=== PATIENT | male | born 1955 | race Hispanic/Latino ===

== ENCOUNTER 2022-03-11 11:05 | Emergency (ER) | payer BC, MEDICARE ==
[2022-03-11 11:18] VITALS: BP 149/84
[2022-03-11 11:38] LABS: Bilirubin,Urine NEG (Negative); Blood,Urine SM (Negative); Color,Urine Yellow (Yellow)
[2022-03-11 12:31] LABS: Bacteria,Urine 4+ /HPF (Negative)
[2022-03-11 12:43] LABS: WBC,Urine > 182.0 /HPF (0.0-6.0)
[2022-03-11] MEDS ORDERED: PHENAZOPYRIDINE 200 MG TAB PO ONE (13:09)
[2022-03-11] MEDS ORDERED: LIDOCAINE-MPF (1%) 10 MG/1 ML VIAL 5 ML INFILTRATI ONE (13:09)
--- NOTE | 2022-03-11 13:09 | Emergency Department Report ---
ED Dysuria HPI - HPI Chief Complaint: Urogenital-Male Stated Complaint: POSSIBLE UTI Time Seen by Provider: 03/11/22 11:34 Location of Discomfort: Urethra (dysuria) Severity: Mild Symptoms: Dysuria: Yes, Frequency: No, Suprapubic Pain: No, Flank Pain: No, Fever: No, Hematuria: No, Abdominal Pain: No, Previous UTI's: Yes Other History: Patient is a pleasant 67-year-old male that comes to the emergency room at the direction of his primary care to get antibiotics. He has a history of UTIs and completed Bactrim less than 1 month ago. 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 He has no abdominal pain. There is no nausea vomiting. There is no back pain. No fever or chills. No hypotension or tachycardia. Patient has no penile discharge. He complains just of dysuria. He is under the care and guidance of his primary care for his BPH at home. And he is in route to his home at this time. Patient will be prescription from the Bactrim and Pyridium that he had been on. ED Review of Systems ROS: Stated complaint: POSSIBLE UTI Other details as noted in HPI Comment: All other systems reviewed and negative ED Past Medical Hx - Past Medical History Previous Medical History?: Yes Additional medical history: neuropathy- UTI - Surgical History Past Surgical History?: No - Family History Family history: no significant - Social History Smoking Status: Never Smoker Substance Use Type: None - Medications Home Medications: Home Medications Medication Instructions Recorded Confirmed Last Taken Type DOXYCYCLINE Hyclate [Vibramycin 100 mg PO Q12HR #20 capsule 03/11/22 Unknown Rx CAP] Dysuria Exam - Exam General: Vital signs noted. No distress. Alert and acting appropriately. Exam: Yes Moist Mucous Membranes, No CVA Tenderness, No Abdominal Tenderness, No Rigidity or Guarding Exam: Patient alert and oriented x4. Vital signs are normal. He is taking p.o. S1-S2. No tachycardia or hypotension. Abdomen soft nontender. Patient obese. Patient has no CVA tenderness. He is taking p.o. Labs: Lab Results 03/11/22 Range/Units Unknown Urine Color Yellow (Yellow) Urine Turbidity Cloudy (Clear) Urine pH 6.0 (5.0-7.0) Ur Specific Simpson 1.013 (1.003-1.030) Urine Protein 30 mg/dl (Negative) mg/dL Urine Glucose (UA) Neg (Negative) mg/dL Urine Ketones Neg (Negative) mg/dL Urine Blood Sm (Negative) Urine Nitrite Neg (Negative) Urine Bilirubin Neg (Negative) Urine Urobilinogen 2.0 (<2.0) mg/dL Ur Leukocyte Esterase Lg (Negative) Urine WBC (Auto) > 182.0 H (0.0-6.0) /HPF Urine RBC (Auto) 49.0 (0.0-6.0) /HPF U Epithel Cells (Auto) 1.0 (0-13.0) /HPF Urine Bacteria (Auto) 4+ (Negative) /HPF Urine WBC Clumps 3+ /HPF Urine Yeast (Budding) 3+ /HPF ED Course Vital Signs 03/11/22 11:16 Temperature 98.7 F Pulse Rate 91 H Respiratory 18 Rate Blood Pressure 149/84 O2 Sat by Pulse 96 Oximetry ED Medical Decision Making - Medical Decision Making Vital Signs 03/11/22 11:16 Temperature 98.7 F Pulse Rate 91 H Respiratory 18 Rate Blood Pressure 149/84 O2 Sat by Pulse 96 Oximetry Lab Results 03/11/22 Range/Units Unknown Urine Color Yellow (Yellow) Urine Turbidity Cloudy (Clear) Urine pH 6.0 (5.0-7.0) Ur Specific Simpson 1.013 (1.003-1.030) Urine Protein 30 mg/dl (Negative) mg/dL Urine Glucose (UA) Neg (Negative) mg/dL Urine Ketones Neg (Negative) mg/dL Urine Blood Sm (Negative) Urine Nitrite Neg (Negative) Urine Bilirubin Neg (Negative) Urine Urobilinogen 2.0 (<2.0) mg/dL Ur Leukocyte Esterase Lg (Negative) Urine WBC (Auto) > 182.0 H (0.0-6.0) /HPF Urine RBC (Auto) 49.0 (0.0-6.0) /HPF U Epithel Cells (Auto) 1.0 (0-13.0) /HPF Urine Bacteria (Auto) 4+ (Negative) /HPF Urine WBC Clumps 3+ /HPF Urine Yeast (Budding) 3+ /HPF UA noted. Patient noted to have 49 RBCs, small blood. His pain is not consistent with that of kidney stones. He has no history of kidney stones. 1 GM IM ROCEPHIN AND PYRIDIUM PO while in the ER. I explained to the patient that ideally we would do blood work to make sure that he does not have a leukocytosis and overwhelming infection. However, he does not want blood work because he is on his way home. He is under the care of direction of a PCP. He showed me Bactrim prescriptions to validate that. He has no hypotension or tachycardia. He is ambulatory to the ER. He has no fever or chills. I have started the patient on doxycycline. He has a urine culture pending. Patient has left the number for us to call should we need to change the antibiotic. I also told him to have his PCP called to get the results of the culture so that they can make sure that he is on the correct antibiotic. I have also advised him that if he has any worsening symptoms in his right home that he needs to stop at any emergency room and allow them to do blood work. He verbalizes understanding. On discharge exam patient is ambulatory, not ill nontoxic. He is taking p.o. Patient being discharged home with discharge plan of care including diet, activity, medications and follow-up. He will follow-up with his PCP as soon as he gets home. - Differential Diagnosis Rule out UTI, PYlo, kidney stone Critical care attestation.: If time is entered above; I have spent that time in minutes in the direct care of this critically ill patient, excluding procedure time. ED Disposition Clinical Impression: UTI (urinary tract infection) Qualifiers: Urinary tract infection type: site unspecified Hematuria presence: with hematuria Qualified Code(s): N39.0 - Urinary tract infection, site not specified; R31.9 - Hematuria, unspecified Disposition: 01 HOME / SELF CARE / HOMELESS Is pt being admited?: No Does the pt Need Aspirin: No Condition: Stable Instructions: Urinary Tract Infection, Adult Additional Instructions: MEDICATION ORDERED TODAY UNTIL GONE FOLLOW UP WITH PCP/UROLOGY WHEN YOU GET HOME PYRIDIUM FOR PAIN MOTRIN OR TYLENOL CAN BE USED FOR PAIN NON SWEET CRANBERRY JUICE MAY HELP WITH DISCOMFORT DRINK A LOT OF WATER! LIMIT CAFFEINE AND ALCOHOL Prescriptions: DOXYCYCLINE Hyclate [Vibramycin CAP] 100 mg PO Q12HR #20 capsule Referrals: LENORE NEELY MD [Staff Physician] - 3-5 Days Time of Disposition: 13:27
== END 2022-03-11 13:53 | disposition home or self-care (01) ==
LOC: ED 11:05
DX: N39.0 Urinary tract infection, site not specified (principal)
CPT/HCPCS: 81001; 87076; 87086; 87186; 96372; 99283; J0696; J3490